=== PATIENT | female | born 1960 | race African-American/Black ===

== ENCOUNTER → 2020-06-20 06:55 | Outpatient (CLI) | payer BC, SELFPAY ==
[2020-06-20 18:59] LABS: SARS-CoV-2 RNA PCR Negative
== END ==
PROVIDERS: PCP Family Medicine; Visit Provider Family Medicine
DX: Z20.822 Contact with and (suspected) exposure to COVID-19 (principal); R50.9 Fever, unspecified
CPT/HCPCS: C9803; U0003; U0005

== ENCOUNTER 2023-11-01 13:55 | Emergency (ER) | payer BC, SELFPAY ==
[2023-11-01 14:02] VITALS: BP 126/75; PULSE 89; RESP 16; TEMP 36.6; O2SAT 100
--- NOTE | 2023-11-01 14:07 | ED.EYEPROB ---
HPI - Eye Problem General Chief complaint: Eye Problems Stated complaint: Left Eye Irritation Time Seen by Provider: 11/01/23 14:07 Source: patient, RN notes reviewed and old records reviewed Mode of arrival: ambulatory Limitations: no limitations History of Present Illness HPI Narrative: Patient presents to [facility] with complaints of bilateral eye itching and drainage. She reports that symptoms began in her left eye about 4 days ago, denies any injury or trauma. Denies any foreign body. She does report that over the past couple days she has noted that her eye is matted shut in the morning and she is having green and yellow exudate from the eye. She reports that symptoms began in the right eye yesterday, worsening. She does have a 3-year-old that lives with her. She voices no other concerns or complaints at this time. Related Data Home Medications Medication Instructions Recorded Confirmed aspirin 81 mg chewable tablet 81 mg PO DAILY 11/01/23 11/01/23 dapagliflozin propanediol 10 mg 10 mg PO DAILY 11/01/23 11/01/23 tablet (Farxiga) docusate sodium 100 mg capsule 100 mg PO DAILY 11/01/23 11/01/23 glyburide 5 mg tablet 5 mg PO DAILY 11/01/23 11/01/23 linaclotide 72 mcg capsule 72 mcg PO DAILY 11/01/23 11/01/23 (Linzess) losartan 50 mg-hydrochlorothiazide 1 tablet PO DAILY 11/01/23 11/01/23 12.5 mg tablet metformin 500 mg tablet,extended 500 mg PO DAILY 11/01/23 11/01/23 release 24 hr plecanatide 3 mg tablet (Trulance) 3 mg PO DAILY 11/01/23 11/01/23 polyethylene glycol 3350 17 17 g PO DAILY 11/01/23 11/01/23 gram/dose oral powder pravastatin 40 mg tablet 40 mg PO DAILY 11/01/23 11/01/23 semaglutide 1 mg/dose (4 mg/3 mL) See Rx Instructions .Route .COMPLEX 11/01/23 11/01/23 subcutaneous pen injector (Ozempic) sitagliptin phosphate 100 mg 100 mg PO DAILY 11/01/23 11/01/23 tablet (Januvia) Allergies Allergy/AdvReac Type Severity Reaction Status Date / Time bacitracin Allergy Severe Swelling Verified 11/01/23 14:20 [From Neosporin ([id number])] neomycin Allergy Severe Swelling Verified 11/01/23 14:20 [From Neosporin ([id number])] nicardipine [From Cardene] Allergy Severe Swelling Verified 11/01/23 14:20 Penicillins Allergy Severe Swelling Verified 11/01/23 14:20 polymyxin B Allergy Severe Swelling Verified 11/01/23 14:20 [From Neosporin ([id number])] Review of Systems Review of Systems: All systems reviewed & are unremarkable except as noted in HPI and below Constitutional: Constitutional: Reports no additional constitutional complaints Eyes: Eyes: Reports as per HPI, Reports eye discharge, Reports itchy eyes, Denies loss of vision and Denies requires corrective lenses ENT: Reports system reviewed and no additional complaints, except as documented Cardiovascular: Cardiovascular: Reports no additional cardiovascular complaints Respiratory: Respiratory: Reports no additional respiratory complaints Gastrointestinal: Gastrointestinal: Reports no additional gastrointestinal complaints Exam Const: General: cooperative, no acute distress, alert and awake Orientation/consciousness: oriented to person, oriented to place and oriented to time HENMT: Head: normal to inspection Eyes: Conjunctivae: conjunctival abnormality bilateral conjunctival injection diffuse Sclera: scleral abnormality bilateral scleral exudate purulent Resp: Effort & Inspection: normal respiratory effort and able to speak in complete sentences Auscultation: clear to auscultation bilaterally, no crackles, no rales, no rhonchi and no wheezes Cardio: Palpation: normal PMI Rate: regular rate Rhythm: regular rhythm Heart sounds: S1 normal heart sound present and S2 normal heart sound present Neuro: General: oriented to person, oriented to place and oriented to time Cranial nerves: Yes CN's II-XII intact bilaterally Psych: Appearance: grossly normal Thought process: Normal thought process p
== END 2023-11-01 14:30 | disposition home or self-care (01) ==
PROVIDERS: Emergency Provider Nurse Practitioner Family; PCP Family Medicine
DX: H10.9 Unspecified conjunctivitis (principal); Z79.82 Long term (current) use of aspirin
CPT/HCPCS: 99213; G0463

== ENCOUNTER 2024-12-27 07:39 | Outpatient (CLI) | payer MEDICARE, SELFPAY ==
--- NOTE | ~2024-12-27 | CT_ITS ---
EXAMINATION:CT lung screening DATE: 12/27/2024 08:18 INDICATION: Nicotine dependence. TECHNIQUE: Computed tomography (CT) of the chest was performed without intravenous contrast. Automated exposure control and iterative reconstruction technique were employed. The dose-length product (DLP) was 180.47 mGy-cm. COMPARISON: None. FINDINGS: There is a 3 mm nodule in right upper lobe. There is minimal atelectasis on either side. No pleural effusion. The heart size is normal. There are coronary artery calcifications. No pericardial effusion. There is moderate thoracic spondylosis. There is mild chronic anterior wedging of multiple mid thoracic vertebral bodies. IMPRESSION: 1. Lung-RADS category 2: Benign appearance or behavior. Continue annual screening with noncontrast low-dose chest CT in 12 months. Reviewed, dictated and finalized at location E. IMPRESSION: 1. Lung-RADS category 2: Benign appearance or behavior. Continue annual screeni ng with noncontrast low-dose chest CT in 12 months.
== END 2024-12-27 07:40 | disposition home or self-care (01) ==
LOC: MICIMG 07:40
PROVIDERS: PCP Family Medicine; Visit Provider Family Medicine
DX: Z12.2 Encounter for screening for malignant neoplasm of respiratory organs (principal); Z87.891 Personal history of nicotine dependence
CPT/HCPCS: 71271